=== PATIENT | female | born 1985 | race Caucasian/White ===

== ENCOUNTER 2019-01-27 07:42 | Observation (INO) | payer MEDICAID, OTHER ==
[~2019-01-27] VITALS: Ht 152.4 cm; Wt 65.8 kg
[2019-01-27] MEDS ORDERED: LIDOCAINE HCL 1% 20ML VIAL (Pyxis) INJ INFIL SCH (08:15)
[2019-01-27] MEDS ORDERED: CARBOPROST TROMETHAMINE 250 MCG/ML AMPUL IM PRN (08:15)
[2019-01-27] MEDS ORDERED: BUTORPHANOL TARTRATE 2 MG/ML VIAL IV PRN (08:15)
[2019-01-27] MEDS ORDERED: NALOXONE HCL 0.4 MG/ML 1ML VIAL IM PRN (08:15)
[2019-01-27] MEDS ORDERED: MISOPROSTOL 100MCG TABLET PO ONE (08:15)
[2019-01-27] MEDS ORDERED: METHYLERGONOVINE MALEATE 0.2 MG/ML IM PRN ×2 (08:15→14:45)
[2019-01-27] MEDS: LACTATED RINGERS 1,000 ML IV SCH ×2 (08:22→10:07)
[2019-01-27 08:38] LABS: BASOPHILS % 0.5 % (0.0-2.0); EOSINOPHILS % 0.1 % (0.0-5.0); HEMATOCRIT. 29.6 % (36.0-48.0); HEMOGLOBIN. 9.7 g/dL (12.0-16.0); LYMPHOCYTES % 22.8 % (20.0-50.0); MEAN CORPUSCULAR HEMOGLOBIN 28.4 pg (28.0-32.0); MEAN CORPUSCULAR VOLUME 86.4 fL (81.0-99.0); MEAN PLATELET VOLUME 10.8 fl (7.4-10.4); MONOCYTES % 6.3 % (2.0-8.0); NEUTROPHILS % 70.3 % (40.0-76.0); PLATELET 159 x1000/uL (130-400); RED BLOOD CELL COUNT 3.43 mill/uL (4.2-5.4); RED CELL DISTRIBUTION WIDTH 14.5 % (11.6-14.6)
[2019-01-27 08:43] LABS: INR 0.9; PARTIAL THROMBOPLASTIN TIME 26.5 sec (23.4-31.0); PROTHROMBIN TIME 9.4 sec (9.6-11.0)
[2019-01-27] MEDS: DEXT 5%/LR + PITOCIN 20UNITS/L 1,000 ML IV SCH ×2 (09:00→15:03)
[2019-01-27 09:04] LABS: CLARITY URINE CLEAR (CLEAR); COLOR URINE YELLOW (YELLOW); KETONES URINE NEGATIVE (NEGATIVE); LEUKOCYTE ESTERASE URINE 1+ (NEGATIVE); NITRITE URINE NEGATIVE (NEGATIVE); OCCULT BLOOD URINE TRACE (NEGATIVE); PH URINE 6.5 (4.5-8.0); PROTEIN URINE NEGATIVE (NEGATIVE); SPECIFIC GRAVITY URINE 1.003 (1.005-1.030); UROBILINOGEN URINE 0.2 E.U./dL (0.2-1.0)
[2019-01-27 09:24] LABS: *BARBITURATES SCREEN URINE NEGATIVE (NEGATIVE); CANNABINOID URINE SCREEN NEGATIVE (NEGATIVE); PHENCYCLIDINE URINE SCREEN NEGATIVE (NEGATIVE)
[2019-01-27 09:25] LABS: *BENZODIAZEPINES SCREEN URINE NEGATIVE (NEGATIVE); *COCAINE SCREEN URINE NEGATIVE (NEGATIVE); METHADONE URINE SCREEN NEGATIVE (NEGATIVE); OPIATES URINE SCREEN NEGATIVE (NEGATIVE)
[2019-01-27 09:30] LABS: *AMPHETAMINES SCREEN URINE PRESUMTIVE POSITIVE (NEGATIVE)
[2019-01-27 11:41] LABS: HEPATITIS B SURFACE ANTIGEN NEGATIVE
[2019-01-27] MEDS ORDERED: DEXT 5%/LR + PITOCIN 20UNITS/L 1,000 ML IV SCH (14:40)
[2019-01-27] MEDS ORDERED: HEMORRHOIDAL SUPP PR PRN (14:45)
[2019-01-27] MEDS ORDERED: GLYCERIN/WITCH HAZEL LEAF MEDICATED PAD TOP PRN (14:45)
[2019-01-27] MEDS ORDERED: BENZOCAINE/LANOLIN/ALOE VERA SPRAY TOP PRN (14:45)
[2019-01-27] MEDS ORDERED: LANOLIN OINT 7GM TUBE TOP PRN (14:45)
[2019-01-27] MEDS ORDERED: OXYCODONE HCL/ACETAMINOPHEN 5/325MG TABLET PO PRN ×2 (14:45)
[2019-01-27] MEDS ORDERED: RHO(D) IMMUNE GLOBULIN 300 MCG/SYR IM PRN (14:45)
[2019-01-27] MEDS ORDERED: DIPHENHYDRAMINE 25MG CAPSULE PO PRN (14:45)
[2019-01-27 16:00] VITALS: BP 120/79
[2019-01-27 16:30] VITALS: BP 119/75
[2019-01-27] MEDS: PRENATAL VIT/FE FUMARATE/FA TABLET PO SCH (16:53)
[2019-01-27] MEDS: IBUPROFEN 400MG TABLET PO PRN (16:54)
[2019-01-27] MEDS: SIMETHICONE 80MG TABLET CHEW PO SCH ×3 (16:54→22:02)
[2019-01-27 17:00] VITALS: BP 118/77
[2019-01-27 19:38] VITALS: BP 135/74
[2019-01-27] MEDS: DOCUSATE SODIUM 100MG CAPSULE PO SCH (22:02)
[2019-01-27 23:30] VITALS: BP 115/68
[2019-01-28 08:00] VITALS: BP 111/76
[2019-01-28] MEDS: PRENATAL VIT/FE FUMARATE/FA TABLET PO SCH (08:33)
[2019-01-28] MEDS: SIMETHICONE 80MG TABLET CHEW PO SCH ×4 (08:33→22:01)
[2019-01-28 16:01] VITALS: BP 120/80
[2019-01-28 19:30] VITALS: BP 114/77
[2019-01-28] MEDS: DOCUSATE SODIUM 100MG CAPSULE PO SCH (22:01)
[2019-01-28] MEDS: IBUPROFEN 400MG TABLET PO PRN (22:02)
[2019-01-28 23:30] VITALS: BP 116/78
[2019-01-29 07:30] VITALS: BP 123/73
[2019-01-29] MEDS: IBUPROFEN 400MG TABLET PO PRN (08:15)
[2019-01-29] MEDS: PRENATAL VIT/FE FUMARATE/FA TABLET PO SCH (08:15)
[2019-01-31 04:13] LABS: AMPHETAMINE CONF URINE Positive (.)
== END 2019-01-29 12:30 | disposition home or self-care (01) ==
LOC: 8 EST LDRP 07:42 → 8EST 15:50
PROVIDERS: ADMIT Obstetrics & Gynecology; ATTEND Obstetrics & Gynecology
DX: O26.893 Other specified pregnancy related conditions, third trimester (principal); R10.9 Unspecified abdominal pain; Z3A.39 39 weeks gestation of pregnancy
CPT/HCPCS: 36415; 80305; 80307; 81003; 85025; 85610; 85730; 86592; 86703; 86762; 86850; 86900; 86901; 87340; 96365; 96366; 96372; 96375; 99281; G0378; J0595; J2310; J2590; J3490; J7120